=== PATIENT | male | born 2000 | race Caucasian/White ===

== ENCOUNTER 2019-10-30 23:32 | Emergency (ER) | payer OTHER ==
[~2019-10-30] VITALS: Ht 188 cm; Wt 95.5 kg
[2019-10-30 23:32] VITALS: TEMP 98.3
[2019-10-30 23:44] LABS: HEMATOCRIT 41.5 % (42.0-52.0); HEMOGLOBIN 14.7 g/dl (13.5-18.0); MEAN CELL VOLUME 83 fl (80.0-100.0); MEAN CORPUSCULAR HEMOGLOBIN 30 pg (27.0-31.0); MEAN CORPUSCULAR HGB CONC 35 g/dl (33.0-37.0); MEAN PLATELET VOLUME 8.4 fl (7.4-10.4); PLATELET COUNT 345 K/mm3 (130-400); RED BLOOD COUNT 4.99 M/mm3 (4.20-5.60); REDCELL DISTRIBUTION WIDTH-CV 11.9 % (11.5-14.5)
[2019-10-30 23:58] LABS: ALBUMIN 4.8 gm/dL (3.5-5.0); BILIRUBIN,TOTAL 0.4 mg/dL (0.0-1.0); CREATININE, serum 1.1 (0.66-1.25); POTASSIUM 3.3 mmol/L (3.4-5.0); TOTAL PROTEIN 8.6 gm/dL (6.4-8.2)
[2019-10-31 00:05] LABS: EOSINOPHIL 1 % (0-4); NEUTROPHILS 51 % (42.0-75.2); PLATELET ESTIMATE NORMAL (NORMAL)
[2019-10-31 00:06] LABS: LYMPHOCYTE 37 % (20.0-51.0)
[2019-10-31] MEDS ORDERED: CEPHALEXIN500 M1 PO (01:01)
[2019-10-31 03:44] LABS: BASO % 0.2 % (0.0-2.0); GRAN # 8.4 (1.4-6.5); GRAN % 75.8 % (42.2-75.2); LYMPH # 1.7 (1.2-3.4); LYMPH % 15.7 % (20.0-51.0); MEAN CELL VOLUME 83 fl (80.0-100.0); MEAN CORPUSCULAR HGB CONC 35 g/dl (33.0-37.0); MEAN PLATELET VOLUME 8.6 fl (7.4-10.4); MONO # 0.9 (0.1-0.6); MONO % 7.8 % (1.7-9.3); RED BLOOD COUNT 3.97 M/mm3 (4.20-5.60); REDCELL DISTRIBUTION WIDTH-CV 11.9 % (11.5-14.5)
[2019-10-31 03:47] LABS: MEAN CORPUSCULAR HEMOGLOBIN 29 pg (27.0-31.0)
[2019-10-31 03:48] LABS: HEMATOCRIT 33.1 % (42.0-52.0); PLATELET COUNT 224 K/mm3 (130-400)
[2019-10-31 03:49] LABS: HEMOGLOBIN 11.7 g/dl (13.5-18.0)
[2019-10-31 05:15] VITALS: BP 120/60; PULSE 90
== END 2019-10-31 05:15 | disposition short-term general hospital (02) ==
LOC: COL.ER 23:32
PROVIDERS: Emergency Medicine
DX: S56.922A Laceration of unspecified muscles, fascia and tendons at forearm level, left arm, initial encounter (principal); Z23 Encounter for immunization; W22.8XXA Striking against or struck by other objects, initial encounter; Y92.410 Unspecified street and highway as the place of occurrence of the external cause
CPT/HCPCS: J0690; J2405; J7030

== ENCOUNTER 2020-01-01 12:45 | Outpatient (RCR) | payer OTHER ==
[~2020-01-01 12:45] MED LIST: CEPHALEXIN500 M1 PO
== END 2020-02-25 14:14 | disposition home or self-care (01) ==
LOC: WSOT 12:45
DX: S51.811A Laceration without foreign body of right forearm, initial encounter (principal); S56.921A Laceration of unspecified muscles, fascia and tendons at forearm level, right arm, initial encounter